=== PATIENT | female | born 1950 | race Caucasian/White ===

== ENCOUNTER → 2017-11-21 | Outpatient (CLI) | payer OTHER | LOC: FIMAGING 09:47 | PROVIDERS: ATTEND Family Medicine | DX: Z12.31 Encounter for screening mammogram for malignant neoplasm of breast (principal); Z80.3 Family history of malignant neoplasm of breast ==

== ENCOUNTER → 2019-01-02 | Outpatient (CLI) | payer OTHER | LOC: FIMAGING 15:49 | PROVIDERS: ATTEND Surgery | DX: I80.222 Phlebitis and thrombophlebitis of left popliteal vein (principal) ==

== ENCOUNTER → 2019-01-12 | Outpatient (CLI) | payer OTHER | LOC: BRMIMAGING 13:55 | PROVIDERS: ATTEND Family Medicine | DX: Z13.820 Encounter for screening for osteoporosis (principal); M81.0 Age-related osteoporosis without current pathological fracture; Z78.0 Asymptomatic menopausal state; Z79.899 Other long term (current) drug therapy ==

== ENCOUNTER → 2019-01-12 | Outpatient (CLI) | payer OTHER | LOC: FIMAGING 11:51 ==